=== PATIENT | male | born 2000 | race Caucasian/White ===

== ENCOUNTER 2023-02-02 11:56 | Emergency (ER) | payer OTHER ==
[2023-02-02 12:08] VITALS: BP 133/88; O2SAT 99
--- NOTE | 2023-02-02 12:18 | ED Physician Documentation ---
History of Present Illness - Stated complaint Stated Complaint: FOREHEAD LAC - Chief complaint Chief Complaint: Laceration - History obtained from History obtained from: Patient - History of Present Illness Timing: Today Pain level max: 0 Pain level now: 0 - Additonal information Additional information: 22-year-old male presents to the emergency department with a laceration to left forehead. He states he was working at the [employer] when he excellently walked into a plane causing a small laceration. No loss of consciousness. No vomiting. He is not on any medications at home. Tetanus is up-to-date. Review of Systems Constitutional: denies: Fever, Chills GI: denies: Vomiting, Diarrhea PD PAST MEDICAL HISTORY - Past Medical History Past Medical History: No - Past Surgical History Past Surgical History: No - Allergies Allergies/Adverse Reactions: Allergies Allergy/AdvReac Type Severity Reaction Status Date / Time No Known Drug Allergies Allergy Verified 02/02/23 12:03 PD ED PE NORMAL - Vitals Vital signs reviewed: Yes - General General: Alert and oriented X 3, No acute distress - HEENT HEENT: PERRL, Other (1 cm laceration to the left forehead, linear, horizontal, Superficial. No palpable skull fractures. 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, No motor deficit, No sensory deficit, Normal speech Eye Opening: Spontaneous Motor: Obeys Commands Verbal: Oriented GCS Score: 15 - Psych Psych: Normal mood, Normal affect Results - Vitals Vitals: Vital Signs - 24 hr 02/02/23 12:01 Temperature 36.5 C Heart Rate 82 Respiratory 16 Rate Blood Pressure 133/88 H O2 Saturation 99 Procedures - Laceration (location) Left forehead Length in cm: 1 Wound type: Linear, Superficial Neurovascular status: Sensory intact, Motor intact, Vascular intact Wound preparation: Irrigated copiously NS, Wound explored, To the base Skin layer closure: Dermabond Other: Patient tolerated well, No complications, Neurovascular intact, Tetanus UTD PD Medical Decision Making - ED course Complexity details: considered differential, d/w patient ED course: Superficial forehead laceration. Repaired with Dermabond. No active bleeding. Tetanus shot up-to-date. No evidence of intracranial hemorrhage or skull fracture. Patient counseled regarding signs and symptoms for which I believe and urgent re-evaluation would be necessary. Patient with good understanding of and agreement to plan and is comfortable going home at this time This document was made in part using voice recognition software. While efforts are made to proofread this document, sound alike and grammatical errors may occur. Departure - Departure Disposition: 01 Home, Self Care Clinical Impression: Forehead laceration Qualifiers: Encounter type: initial encounter Qualified Code(s): S01.81XA - Laceration without foreign body of other part of head, initial encounter Condition: Good Instructions: ED Laceration Facial Skin Glue Follow-Up: your,doctor as needed [Other] Comments: Keep the wound clean. The glue will fall off on its own. You can follow-up with your doctor as needed for further care. To minimize scarring, you should wear sunscreen once these wound is healed for at least the next 6 months and anytime you are outside. Please return if you notice redness, swelling or drainage from the wound.
== END 2023-02-02 12:28 | disposition home or self-care (01) ==
LOC: ED 11:56
DX: S01.81XA Laceration without foreign body of other part of head, initial encounter (principal); W22.8XXA Striking against or struck by other objects, initial encounter; Y93.01 Activity, walking, marching and hiking
CPT/HCPCS: 12011; 99281